=== PATIENT | female | born 1960 | race Caucasian/White ===

== ENCOUNTER 2023-07-15 08:31 | Outpatient (REF) | payer BC, SELFPAY ==
--- NOTE | 2023-07-15 08:00 | SKI_PTH ---
PATIENT: Paz Tavarez LOC: [facility] U#:[id number] AGE/SX: 62/F ROOM: RE07/15/[address]: Mo Hansen MD : 1960 BED: DIS: 07/15/2023 SPEC #: [id number] RECD: 07/15/23 18:13 STATUS: RADHA RECatherine #: [id number] XIANG: 07/15/23 08:[address]: Mo Hansen DEPT: Surgical Specimen RECD BY: Alyssa Torres ENTERED: 07/15/23 18:14 SP TYPE: JACK DURAN DR: Benton Mcdaniel Tissues: 1 - SKIN BIOPSY(SHAVE/PUNCH) Procedures: SKIN LEVEL 4 Comments: [id number]
== END 2023-07-15 08:32 | disposition home or self-care (01) ==
LOC: LBN 08:31
PROVIDERS: PCP Registered Nurse; Visit Provider Otolaryngology
DX: L82.1 Other seborrheic keratosis (principal)
CPT/HCPCS: 88305